=== PATIENT | female | born 1950 | race Caucasian/White ===

== ENCOUNTER → 2023-07-13 14:27 | Outpatient (REF) | payer MEDICARE, OTHER, SELFPAY | LOC: HWWDC 14:27 | PROVIDERS: ATTENDING PHYSICIAN Student in an Organized Health Care Education/Training Program | DX: Z12.31 Encounter for screening mammogram for malignant neoplasm of breast (principal) | CPT/HCPCS: 77063; 77067 ==

== ENCOUNTER 2024-04-19 12:49 | Emergency (ER) | payer MEDICARE, OTHER, SELFPAY ==
[2024-04-19 12:57] VITALS: BP 131/84
--- NOTE | 2024-04-19 13:33 | ED.GENMED ---
History of Present Illness
General
Chief Complaint: Weakness
Source: patient
Time Seen by Provider: 04/19/24 13:19
History of Present Illness
History of Present Illness:
73-year-old female with past medical history of paroxysmal atrial fibrillation, hyperlipidemia, diverticulitis, GERD presenting to the emergency department for evaluation after she started with persistent diarrhea Wednesday evening that lasted through
Wednesday and stopped after she took an Imodium on Wednesday evening, since that time has been eating mainly liquid based diet, notes continued generalized weakness and feeling unwell. Patient states that she has not had any bowel movement this Wednesday
evening. Patient denies any fevers or upper respiratory-like symptoms during this time. No known sick contacts, recent travel or recent antibiotics. Patient states that she was concern for reoccurrence of diverticulitis and states that she was
told by her colorectal surgeon that if symptoms were to flare that she should come to the emergency department for further evaluation which is why she presented today. Patient notes that on Wednesday morning into Wednesday while trying to get to the
bathroom she believes she may have either syncopized or got too weak causing her to fall onto the ground. No episodes since then as well.
Past History
Past History
ED Past Medical History: Arrthythmia (Questionable 'atrial fib vs fast heart rate'), GERD, Hypercholesterolemia and Other (Ulcers, Diverticulitis, kidney stone)
ED Past Surgical History: Brain, Tonsilectomy and Urological (Lithotripsy with stent placement on right September 2021)
Social History
Tobacco: Non-smoker
Alcohol: Occasional
Drug: None
Personal:
Living: with family
Employment: Retired
Family History
Family History: Other (Noncontributory)
Review of Systems
Review of Systems
All Other Systems: ROS reviewed and negative except as documented in HPI and ROS
Phy Exam
Physical Exam
Physical Exam:
GENERAL: Alert , in no apparent distress
EYE: clear conjunctiva b/l
HEAD: NCAT
ENT: mmm.
CARDIAC: Regular rate and rhythm .
LUNGS: Clear breath sounds bilaterally, no acute respiratory distress, no wheezes/rales/rhonchi
ABDOMEN: Soft, without focal tenderness, no r/g, no cvat
NEUROLOGICAL: Alert and oriented
SKIN: Warm and dry, skin intact.
MUSCULOSKELETAL: No edema, well perfused.
PSYCH: Normal and appropriate interaction.
Scores
Heart Failure Risk
Heart Failure Risk Score: Not Applicable
Heart Score for Chest Pain Patients
STEMI patient?: Not applicable
Withdrawal Assessment of Alcohol
Withdrawal Assessment Completed?: Not applicable
Course
Orders/Labs/Results
Orders:
Orders
04/19/24 13:02
Electrocardiogram (*1) Urgent
Reason for Study: Fatigue / Weakness
EKG- Treatment ONCE
04/19/24 13:29
0.9% Sodium Chloride 1000 ml [Nss] 1,000 ml IV BOLUS
04/19/24 13:30
CT Abd/Pel (IV only)-DH only Urgent
Comment:
Reason For Exam: hx diverticulitis, diarrhea
04/19/24 13:50
COVID-19 Antigen Urgent
Source: Nasal Swab
Complete Blood Count/With Diff Urgent
Comprehensive Metabolic Panel Urgent
Lipase Urgent
Influenza A+B Rapid Molecular Urgent
TERRENCE Source: Nasal Swab
Specimen Description:
Abnormal Lab Results
04/19/24
13:50
MCHC 32.4 L g/dL
(33.0-37.0)
Absolute Monos (auto) 0.7 H 10^3/uL
(0.1-0.6)
Lymphocytes % 16.5 L %
(20.5-51.1)
04/19/24 13:50
04/19/24 13:50
Vital Signs
Initial and Last Documented VS:
Initial Vital Signs
Temp Pulse Resp BP Pulse Ox
99.9 F 78 18 131/84 98
04/19/24 12:57 04/19/24 12:57 04/19/24 12:57 04/19/24 12:57 04/19/24 12:57
Last Documented Vital Signs
Temp Pulse Resp BP Pulse Ox
99.9 F 78 18 115/62 100
04/19/24 12:57 04/19/24 12:57 04/19/24 12:57 04/19/24 17:00 04/19/24 17:00
MDM/Problems Addressed
Differential Diagnosis Includes:
Gastroenteritis, colitis, diverticulitis, electrolyte derangement, dehydration, flu
MDM/Problems Addressed:
73-year-old female presenting to the ER after having continuous diarrhea Wednesday night into Wednesday, symptoms now resolved although patient stating she still just does not feel quite right. Patient with low-grade temperature of 99.9 in triage however
other vitals are within normal limits. Patient is overall well-appearing with no focal abdominal tenderness. I am a little less suspicious for diverticulitis given lack of pain however given history will need CT scan. Will check labs to evaluate
for any possible electrolyte derangement. IV fluids ordered. Disposition pending.
*Radiology
Radiology exam reviewed: radiology read reviewed
*Pulse Oximetry
Patient hypoxic: no
*Supervisor Pigment Making Interpretation
Rate: normal
Rhythm: sinus
*Critical Care Note
Total Time (30-74mins, 75-104mins- exclusive of procedures): Not Applicable
Data Reviewed
Review of Other/Old Records Reveals: Labs and Records
Patient Management
Escalation/DeEscalation of care consider admission/obs:
Patient CT scan shows severe diverticulosis but no diverticulitis. Other findings chronic. Patient provided with printout of CT report. Advised to increase fiber and water soluble foods in diet. Encourage close outpatient follow-up. Patient
aware of return precautions to the ER but otherwise stable for discharge home.
ED Attending Note
-
Portions of this chart may have been created with voice recognition software.� Occasional wrong word or��sound alike� substitutions may have occurred due to the inherent limitations of voice recognition software.
Discharge Plan
Departure
Patient Disposition: Home (Routine Discharge)
Date of Disposition: 04/19/24
Time of Disposition: 18:30
Patient with high blood pressure during this ER visit?: No
Discharge Problem:
Diverticulosis, Diarrhea
Instructions: Diverticulosis
Prescriptions:
No Action
sodium chloride 1 DROP drops
1 drp BOTH EYES TID
guar gum 1 PKT packet
1 pkt PO DAILY
rosuvastatin 10 MG tablet
10 mg PO DAILY
cholecalciferol (vitamin D3) 1,000 UNITS tablet
1,000 units PO DAILY
acetaminophen [Tylenol Extra Strength] 500 MG tablet
1,000 mg PO DAILYPRN PRN (Reason: mild pain, back pain)
amoxicillin-pot clavulanate 1 TABLET tablet
1 tab PO Q12 Qty: 16 0RF
oxycodone 5 mg tablet
2.5 mg PO Q6H PRN (Reason: pain) Qty: 6 0RF
Referrals:
Zayra Gonzalez MD [Family Provider] -
Interventions
Interventions:
*Risk Screen - Suicide Last Done: 04/19/24 12:57
*General Assessment Last Done: 04/19/24 12:57
*Neglect/Abuse Screening Last Done: 04/19/24 12:57
*ED- Fall Risk Assessment Last Done: 04/19/24 14:03
*ED COVID-19 Vaccine History Last Done: 04/19/24 12:57
*Nursing Disposition Last Done: 04/19/24 18:42
ED- Cardiac Assessment Last Done: 04/19/24 14:05
ED- Neurological Assessment Last Done: 04/19/24 14:05
ED- Pulmonary Assessment Last Done: 04/19/24 14:05
Discharge Date and Time
Discharge Date/Time: 04/19/24 18:43
Print Language: MALAYSIAN
[2024-04-19 13:53] VITALS: BP 109/64
[2024-04-19 14:00] VITALS: BP 114/66
[2024-04-19 14:01] VITALS: BMI 24.3
[2024-04-19 14:08] LABS: % Basophils 0.7 % (0-2); % Eosinophils 1.4 % (0-6); % Immature Granulocytes 0.2 % (0-0.5); % Lymphocytes 16.5 % (20.5-51.1); % Monocytes 8.1 % (1.7-9.3); % Neutrophils 73.1 % (42.2-75.2); Absolute Basophils 0.1 10^3/uL (0-0.2); Absolute Eosinophils 0.1 10^3/uL (0-0.7); Absolute Lymphocytes 1.4 10^3/uL (1.2-3.4); Absolute Monocytes 0.7 10^3/uL (0.1-0.6); Absolute Neutrophils 6.1 10^3/uL (1.4-6.5); Hematocrit 43.8 % (37.0-47.0); Hemoglobin 14.2 g/dL (12.0-16.0); Mean Corp Hgb Conc. 32.4 g/dL (33.0-37.0); Mean Corpuscular Hgb 30.1 pg (27.0-31.0); Mean Corpuscular Volume 92.8 fL (81.0-99.0); Mean Platelet Volume 10.4 fL (7.4-10.4); Nucleated Red Blood Cells % 0 %; Platelet Count 233 10^3/uL (130-400); Red Blood Cell Count 4.72 10^6/uL (4.20-5.40); Red Cell Dist. Width 13.4 % (11.5-14.5); White Blood Cell Count 8.3 10^3/uL (4.8-10.8)
[2024-04-19] MEDS: NSS 1000 IV (14:09)
[2024-04-19 14:22] LABS: ALT (SGPT) 29 U/L (0-35); AST (SGOT) 31 U/L (14-36); Albumin 3.8 g/dl (3.5-5.0); Alkaline Phosphatase 48 U/L (38-126); Blood Urea Nitrogen 16 mg/dl (7-17); Carbon Dioxide 26 mmol/L (22-30); Chloride 107 mmol/L (98-107); Estimated Creatinine Clearance 55 ml/min; Glucose 94 mg/dl (70-99); Lipase 104 U/L (23-300); Potassium 4.3 mmol/L (3.5-5.1); Sodium 139 mmol/L (135-145); Total Bilirubin 0.5 mg/dl (0.2-1.3); Total Protein 6.4 g/dl (6.3-8.2); eGFR > 60.00
[2024-04-19 14:50] LABS: COVID-19 Antigen Negative (Negative)
[2024-04-19 15:00] VITALS: BP 126/110
[2024-04-19 16:00] VITALS: BP 111/69
[2024-04-19 17:00] VITALS: BP 115/62
== END 2024-04-19 18:43 | disposition home or self-care (01) ==
LOC: EMR 12:49
PROVIDERS: Physician Assistant Medical; EMERGENCY PHYSICIAN Emergency Medicine; FAMILY PHYSICIAN Emergency Medicine
DX: K57.30 Diverticulosis of large intestine without perforation or abscess without bleeding (principal); R19.7 Diarrhea, unspecified; I48.0 Paroxysmal atrial fibrillation; E78.00 Pure hypercholesterolemia, unspecified; K21.9 Gastro-esophageal reflux disease without esophagitis
CPT/HCPCS: 99284; 96360; 74177; 80053; 83690; 85025; 87502; 87811; 93005; Q9967

== ENCOUNTER 2024-07-05 06:06 | Inpatient (IN) | payer MEDICARE, OTHER, SELFPAY ==
[2024-06-26 11:36] LABS: Hematocrit 42.3 % (37.0-47.0); Hemoglobin 13.4 g/dL (12.0-16.0); Mean Corp Hgb Conc. 31.7 g/dL (33.0-37.0); Mean Corpuscular Hgb 29.8 pg (27.0-31.0); Mean Platelet Volume 11.3 fL (7.4-10.4); Platelet Count 259 10^3/uL (130-400); Red Cell Dist. Width 13.5 % (11.5-14.5)
[2024-06-26 11:46] LABS: APTT 29.3 Sec (23.4-35.0); INR 0.92; PT 12.7 Sec (11.4-14.6)
[2024-06-26 12:04] LABS: ALT (SGPT) 29 U/L (0-35); AST (SGOT) 28 U/L (14-36); Albumin 4.4 g/dl (3.5-5.0); Alkaline Phosphatase 42 U/L (38-126); Blood Urea Nitrogen 17 mg/dl (7-17); Calcium 9.1 mg/dl (8.4-10.2); Carbon Dioxide 28 mmol/L (22-30); Chloride 109 mmol/L (98-107); Glucose 92 mg/dl (70-99); Sodium 143 mmol/L (135-145); Total Bilirubin 0.7 mg/dl (0.2-1.3); eGFR > 60.00
[2024-06-26 13:42] VITALS: BMI 25.0
[2024-06-27 03:09] LABS: Glycohemoglobin (HgbA1c) 5.6 % (4.0-5.6)
[2024-07-05] VITALS (24 sets, daily range): BP systolic 87–132; BP diastolic 50–66; BMI 25.0
[2024-07-05] MEDS: ENTEREG 12 MG PO (06:51)
[2024-07-05] MEDS: HEPARIN 5000 UNITS SC (06:51)
[2024-07-05] MEDS: NORMOSOL-R/PLASMALYTE-A 1000 IV ×3 (06:51→23:15)
[2024-07-05] MEDS: TYLENOL 1000 MG PO (06:51)
--- NOTE | 2024-07-05 11:21 | W.IMMPOSTOP ---
Surgical Immed Post Op Note
-
Primary Surgeon: Arturo Giraldo MD
Dry Curer: GENEVA Mackey
Pre-op Diagnosis: Recurrent sigmoid diverticulitis
Post-op Diagnosis: Same
Procedure Performed: Robotic sigmoid colon resection with intracorporeal anastomosis
Anesthesia Type: GET
Specimen / Cultures: Sigmoid colon (suture is proximal)
Estimated Blood Loss: 20cc
Complications: None
Operative Findings: Chronic sigmoid diverticulitis
28mm EEA
Normal leak test
Patient's updated.
[2024-07-05] MEDS: ZOFRAN 4 MG IV (11:55)
[2024-07-05] MEDS: TYLENOL PO (12:42)
[2024-07-05] MEDS: TORADOL IV (16:11)
[2024-07-05] MEDS: TYLENOL 650 MG PO ×3 (16:15→23:16)
[2024-07-05] MEDS: TORADOL 15 MG IV ×2 (17:26→23:16)
--- NOTE | 2024-07-05 17:45 | DOWNTIME ---
There was a [employer] Client Staff Radiation Therapist Downtime on 07/05/2024 from 1230 to 07/05/2024 at 1550. Downtime documentation of patient's care, including medication administrations, has been reconciled in the electronic record per guidelines. Refer to the
patient's paper chart under the miscellaneous tab to see printed paper medication records and downtime forms.
[2024-07-05] MEDS: LEXAPRO 5 MG PO (22:33)
[2024-07-06 03:04] VITALS: BP 107/49
[2024-07-06] MEDS: TYLENOL 650 MG PO ×5 (04:05→23:27)
[2024-07-06] MEDS: TORADOL 15 MG IV ×4 (05:56→23:28)
[2024-07-06 06:00] VITALS: BMI 25.1
[2024-07-06 07:30] LABS: % Basophils 0.1 % (0-2); % Immature Granulocytes 0.4 % (0-0.5); % Lymphocytes 6.6 % (20.5-51.1); % Monocytes 6.9 % (1.7-9.3); Absolute Immature Granulocytes 0.1 10^3/uL (0-0.05); Absolute Monocytes 1.1 10^3/uL (0.1-0.6); Absolute Neutrophils 13.2 10^3/uL (1.4-6.5); Hematocrit 36.9 % (37.0-47.0); Mean Corp Hgb Conc. 32.5 g/dL (33.0-37.0); Mean Corpuscular Hgb 30.5 pg (27.0-31.0); Mean Corpuscular Volume 93.7 fL (81.0-99.0); Mean Platelet Volume 11.2 fL (7.4-10.4); Nucleated Red Blood Cells % 0 %; Platelet Count 224 10^3/uL (130-400); Red Blood Cell Count 3.94 10^6/uL (4.20-5.40); Red Cell Dist. Width 13.8 % (11.5-14.5); White Blood Cell Count 15.4 10^3/uL (4.8-10.8)
[2024-07-06 07:58] VITALS: BP 92/47
[2024-07-06 08:06] LABS: Blood Urea Nitrogen 9 mg/dl (7-17); Calcium 7.3 mg/dl (8.4-10.2); Carbon Dioxide 23 mmol/L (22-30); Chloride 114 mmol/L (98-107); Estimated Creatinine Clearance 62 ml/min; Glucose 117 mg/dl (70-99); Potassium 4.9 mmol/L (3.5-5.1); Sodium 139 mmol/L (135-145); eGFR > 60.00
[2024-07-06] MEDS: CRESTOR 10 MG PO (08:13)
[2024-07-06] MEDS: ENTEREG 12 MG PO ×2 (08:13→19:48)
--- NOTE | 2024-07-06 09:55 | W.PN.CRS1 ---
Today's Communication / Plan
-
dc reynoso
advance diet
lovenox
Assessment/Plan
-
POD#1 Robotic sigmoid colon resection with intracorporeal anastomosis
WBC 15.4, Hgb 12.0
Vitals normal
-Out of bed as tolerated
-Okay to shower
-OR pathology pending
-Advance diet to fulls this afternoon
-D/C IVFs when tolerating po
-Pain control: tylenol/toradol standing, Dilaudid PRN
-D/C reynoso
-Add lovenox for dvt prophylaxis, TEDS/SCDS in place
Subjective Data
Procedure
07/05/2024- Robotic sigmoid colon resection with intracorporeal anastomosis
Subjective Data
Date of Service: July 06, 2024
Patient states she is feeling well. She denies nausea or vomiting. She has not any bowel movements or flatus yet. Her pain is controlled.
Objective Data
-
Vital Signs
Temp Pulse Resp BP Pulse Ox
98.6 F 64 16 92/47 97
07/06/24 07:58 07/06/24 07:58 07/06/24 07:58 07/06/24 07:58 07/06/24 07:58
Intake & Output
07/05/24 07/06/24 07/07/24
06:59 06:59 06:59
Intake Total 1460 / 1460
Output Total 1700 / 1700
Balance -240 / -240
Intake:
Oral fluids 500 / 500
IV fluids (Total) 960 / 960
Output:
Urine, Reynoso 1700 / 1700
Lab Results
07/06/24 07:05
07/06/24 07:05
Physical Exam
-
General: No Acute Distress and AOx3
Abdomen: Soft, Non Distended and Non Tender
Skin: Warm and Dry
Incision: Clear, Dry, Intact
[2024-07-06 10:51] VITALS: BP 114/60; PULSE 71
--- NOTE | 2024-07-06 12:16 | CM ---
Initial assessment completed with patient who lives with her in a 2 story town-home plus basement, B/B on main floor, 2 steps to enter. 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 Support system is , friends,
neighbors and 2 sons who live in [facility]. Does have a HC-POA. No service. PCP is Dr. Zayra Gonzalez and Pharmacy is [facility] [place]. Discharge POC: Home with no needs.
[2024-07-06] MEDS: NORMOSOL-R/PLASMALYTE-A IV (12:27)
[2024-07-06 12:33] VITALS: BP 111/57
[2024-07-06 15:05] VITALS: BP 125/65
[2024-07-06] MEDS: LOVENOX 40 MG SC (18:21)
[2024-07-06] MEDS: TYLENOL PO (19:48)
[2024-07-06] MEDS: LEXAPRO 5 MG PO (22:07)
[2024-07-06 23:00] VITALS: BP 129/62
[2024-07-07] MEDS: ROXICODONE 5 MG PO (00:43)
[2024-07-07] MEDS: TYLENOL PO (05:02)
[2024-07-07 06:00] VITALS: BMI 25.8
[2024-07-07] MEDS: TORADOL 15 MG IV ×2 (06:00→13:07)
[2024-07-07 07:18] VITALS: BP 115/68
[2024-07-07] MEDS: TYLENOL 650 MG PO ×2 (07:53→13:06)
[2024-07-07] MEDS: ENTEREG 12 MG PO (07:53)
[2024-07-07] MEDS: CRESTOR 10 MG PO (07:53)
[2024-07-07 08:06] LABS: % Basophils 0.4 % (0-2); % Eosinophils 0.9 % (0-6); % Immature Granulocytes 0.3 % (0-0.5); % Lymphocytes 21.2 % (20.5-51.1); % Monocytes 7.1 % (1.7-9.3); % Neutrophils 70.1 % (42.2-75.2); Absolute Basophils 0.1 10^3/uL (0-0.2); Absolute Eosinophils 0.1 10^3/uL (0-0.7); Absolute Lymphocytes 2.4 10^3/uL (1.2-3.4); Absolute Monocytes 0.8 10^3/uL (0.1-0.6); Hematocrit 35.4 % (37.0-47.0); Hemoglobin 11.7 g/dL (12.0-16.0); Mean Corp Hgb Conc. 33.1 g/dL (33.0-37.0); Mean Corpuscular Hgb 30.7 pg (27.0-31.0); Mean Corpuscular Volume 92.9 fL (81.0-99.0); Nucleated Red Blood Cells % 0 %; Platelet Count 222 10^3/uL (130-400); Red Blood Cell Count 3.81 10^6/uL (4.20-5.40); Red Cell Dist. Width 14.1 % (11.5-14.5); White Blood Cell Count 11.5 10^3/uL (4.8-10.8)
--- NOTE | 2024-07-07 08:32 | W.PN.CRS1 ---
Today's Communication / Plan
-
low residue
possible d/c later today
Assessment/Plan
-
POD#2 Robotic sigmoid colon resection with intracorporeal anastomosis
WBC 11.5 (15.4), Hgb 11.7 (12.0)
Vitals normal
-Out of bed as tolerated
-Okay to shower
-OR pathology pending
-Advance diet to low residue
-Pain control: tylenol/toradol standing, Dilaudid PRN
-Lovenox for dvt prophylaxis, TEDS/SCDS in place
-Possible discharge later today if tolerates low residue.
Subjective Data
Procedure
07/05/2024- Robotic sigmoid colon resection with intracorporeal anastomosis
Subjective Data
Date of Service: July 07, 2024
Patient states she had some cramping last night. She denies nausea or vomiting. She tolerating fulls well. She is not quite sure about going home today.
Objective Data
-
Vital Signs
Temp Pulse Resp BP Pulse Ox
98.5 F 60 16 115/68 96
07/07/24 07:18 07/07/24 07:18 07/07/24 07:18 07/07/24 07:18 07/07/24 07:18
Intake & Output
07/06/24 07/07/24 07/08/24
06:59 06:59 06:59
Intake Total 1460 / 1460
Output Total 1700 / 1700 110 / 110 500 / 500
Balance -240 / -240 -110 / -110 -500 / -500
Intake:
Oral fluids 500 / 500
IV fluids (Total) 960 / 960
Output:
Urine, [place] 1700 / 1700
Urine, Voided 110 / 110 500 / 500
Lab Results
05/30/25 07:24
Physical Exam
-
General: No Acute Distress and AOx3
Abdomen: Soft, Non Distended and Non Tender
Skin: Warm and Dry
Incision: Clear, Dry, Intact
[2024-07-07 08:34] LABS: Blood Urea Nitrogen 10 mg/dl (7-17); Calcium 8.1 mg/dl (8.4-10.2); Carbon Dioxide 21 mmol/L (22-30); Chloride 109 mmol/L (98-107); Estimated Creatinine Clearance 62 ml/min; Glucose 88 mg/dl (70-99); Potassium 4.7 mmol/L (3.5-5.1); Sodium 135 mmol/L (135-145); eGFR > 60.00
--- NOTE | 2024-07-07 14:41 | CM ---
Patient has been medically cleared for discharge to home with no additional skilled services. Patient has arranged for transport home.
[2024-07-07 15:10] VITALS: BP 124/63
== END 2024-07-07 15:44 | disposition home or self-care (01) | DRG 331 ==
LOC: 2 SOUTH 06:06
PROVIDERS: Physician Assistant; ADMITTING PHYSICIAN Surgery; FAMILY PHYSICIAN Emergency Medicine
PROC: 0DTN0ZZ Resection of Sigmoid Colon, Open Approach (ICD-10-PCS; 2024-07-05)
PROC: 8E0W0CZ Robotic Assisted Procedure of Trunk Region, Open Approach (ICD-10-PCS; 2024-07-05)
DX: K57.32 Diverticulitis of large intestine without perforation or abscess without bleeding (principal)
CPT/HCPCS: 88307; 36415; 80048; 80053; 83036; 85025; 85027; 85610; 85730; 86850; 86900; 86901; 97161; J1335

== ENCOUNTER → 2024-08-18 08:59 | Outpatient (REF) | payer MEDICARE, OTHER, SELFPAY | LOC: HWWDC 08:59 | PROVIDERS: ATTENDING PHYSICIAN Emergency Medicine | DX: Z12.31 Encounter for screening mammogram for malignant neoplasm of breast (principal) | CPT/HCPCS: 77063; 77067 ==

== ENCOUNTER 2024-11-25 12:11 | Emergency (ER) | payer MEDICARE, OTHER, SELFPAY ==
[2024-11-25 12:24] VITALS: BP 133/66
[2024-11-25 12:40] LABS: Hematocrit 45.6 % (37.0-47.0); Hemoglobin 14.2 g/dL (12.0-16.0); Mean Corp Hgb Conc. 31.1 g/dL (33.0-37.0); Mean Corpuscular Volume 96.8 fL (81.0-99.0); Nucleated Red Blood Cells % 0 %; Platelet Count 275 10^3/uL (130-400); Red Cell Dist. Width 13.2 % (11.5-14.5)
[2024-11-25 12:55] LABS: INR 0.96; PT 13.1 Sec (11.4-14.6)
[2024-11-25 13:06] LABS: ALT (SGPT) 20 U/L (0-35); AST (SGOT) 23 U/L (14-36); Albumin 4.3 g/dl (3.5-5.0); Alkaline Phosphatase 42 U/L (38-126); Blood Urea Nitrogen 16 mg/dl (7-17); Calcium 9.5 mg/dl (8.4-10.2); Carbon Dioxide 28 mmol/L (22-30); Chloride 110 mmol/L (98-107); Glucose 81 mg/dl (70-99); Potassium 4.7 mmol/L (3.5-5.1); Sodium 142 mmol/L (135-145); Total Protein 6.9 g/dl (6.3-8.2); eGFR > 60.00
[2024-11-25 13:25] LABS: Troponin I < 0.012 ng/ml
[2024-11-25 14:36] VITALS: BP 133/78
[2024-11-25 14:43] VITALS: BMI 25.7
[2024-11-25] MEDS: NSS 1000 IV (14:48)
[2024-11-25 15:00] VITALS: BP 137/75
[2024-11-25 16:40] VITALS: BP 126/78
[2024-11-25 17:16] VITALS: BP 113/72
[2024-11-25 17:17] LABS: Troponin I < 0.012 ng/ml
[2024-11-25 17:30] VITALS: BP 111/62
--- NOTE | 2024-11-25 17:35 | ED.GENMED ---
History of Present Illness
General
Chief Complaint: Chest Pain
Source: patient and spouse
Time Seen by Provider: 11/25/24 14:27
History of Present Illness
History of Present Illness:
Note:
CHIEF COMPLAINT(S)
Mitral valve prolapse symptoms, lightheadedness, sweating, and bowel irregularities.
HISTORY OF PRESENT ILLNESS
The patient is a 74-year-old female who reports experiencing symptoms overnight, including a sensation she attributes to her mitral valve prolapse. Last night, she had 'infrequent glitches' causing painful sensations momentarily. This morning, while
at her computer, she suddenly felt hot, sweaty, weak, and dizzy. She also mentions recent changes in her bowel habits, which have not normalized since undergoing a bowel resection on July 05. The resection was done at the hospital, and her bowel
movements have not returned to her previous baseline in the four months since. While lying in the hospital, she experienced symptoms twice that she associated with her mitral valve. She notes occasional back pain, which she managed with OTC muscle
relaxants. No episodes of shortness of breath or leg swelling were reported. The patient denies having coronary artery disease but is under a cardiologists care.
PAST MEDICAL AND SURIGICAL HISTORY
The patient underwent bowel resection on July 05.
CHRONIC MEDICAL CONDITIONS SIGNIFICANTLY AFFECTING CARE
Mitral valve prolapse.
ALLERGIES
The patient reports allergies to sulfa drugs, beta blockers, and one unspecified medication.
PAST MEDICAL HISTORY
Mitral valve prolapse.
PAST SURGICAL HISTORY
Bowel resection on July 05.
MEDICATIONS
The patient uses [id number] muscle relaxants as needed.
REVIEW OF SYSTEMS
- Cardiovascular: Reports intermittent episodes of sensations attributed to mitral valve prolapse, no shortness of breath.
- Neurological: Reports feeling weak and dizzy while sitting.
- Gastroenterological: Reports unresolved changes in bowel habits since bowel resection, denies pain during deep breaths.
- Musculoskeletal: Reports occasional back pain, relieved with OTC medication.
PHYSICAL EXAM
General: Alert, no acute distress.
Skin: Warm, dry.
Head: Normocephalic, atraumatic.
Neck: Supple, trachea midline.
Eye, Ears, Nose, Mouth and Throat: Oral mucosa moist.
Cardiovascular: Normal peripheral perfusion, No edema. RRR, no murmurs
Respiratory: Respirations are non-labored. lungs clear
Gastrointestinal: Abdomen non-distended.
Back: Normal range of motion, Normal alignment.
Musculoskeletal: Normal range of motion, normal strength.
Neurological: Alert and oriented to person, place, time, and situation, No focal neurological deficit observed.
Psychiatric: Cooperative, appropriate mood & affect.
PROBLEM LIST
Acute:
- Lightheadedness and dizziness
- Sweating and weakness
Chronic:
- Mitral valve prolapse
PLAN
1. Conduct blood tests to check electrolytes, hemoglobin, and heart enzyme levels.
2. Perform a chest X-ray to check for fluid accumulation or other post-surgical complications.
3. Administer IV fluids given changes in stool and current state.
4. Monitor heart rate and oxygen levels.
5. Evaluate for atypical symptoms of potential coronary issues, especially in context of recent symptoms.
DIFFERENTIAL DIAGNOSIS
The Differential Diagnosis includes, in no particular order and is not limited to:
- Coronary artery disease
- Atypical angina
- Arrhythmia
- Electrolyte imbalance
- Gastrointestinal issues related to bowel resection
- Dehydration
- Vasovagal syncope
- Heart failure
- Pulmonary embolism
- Anemia
EKG
My independent EKG interpretation is:
- EKG time not specified.
- Rhythm: Regular sinus rhythm.
- Heart rate: 65 beats per minute.
- [place]: Normal.
- AL interval: Normal.
- QRS duration: Normal.
- QT interval: Normal.
- Abnormalities: No ischemic changes observed; no ST segment changes or T wave inversions.
Disposition:
SUMMARY OF ENCOUNTER
A 74-year-old female presented with atypical symptoms that she attributed to her mitral valve prolapse, including a 'twinge.' The patient reported no murmurs, and her EKG is normal with no acute ischemic changes. A CBC and BMP were conducted, both
returning normal results. Troponin tests conducted twice, three hours apart, were negative. COVID-19 was not checked. A chest X-ray showed no acute findings. Based on the evaluation and test results, the patient was deemed stable for outpatient
management.
PLAN
The patient is advised to follow up with a multimedia instructional designer for further evaluation of her symptoms and to use the chest pain follow-up hotline as needed.
INDEPENDENT REVIEW OF LABS AND INTERPRETATION OF TESTS
- My independent review of CBC is normal.
- My independent review of BMP is normal.
- My independent review of troponin is negative for both tests conducted three hours apart.
- My independent interpretation of the chest X-ray shows no acute findings.
MEDICATION RECONCILIATION
- No new prescriptions or medications were administered during this visit.
MEDICAL DECISION MAKING
- Number and Complexity of Problems Addressed: Chronic conditions affecting care are mitral valve prolapse. Differential diagnosis includes coronary artery disease, atypical angina, arrhythmia, electrolyte imbalance, gastrointestinal issues,
dehydration, vasovagal syncope, heart failure, pulmonary embolism, and anemia.
- Data:
Category 1
- My independent interpretation of EKG was normal.
- External record indicates previous issues with mitral valve prolapse.
- Risk:
Consideration of admission/observation was considered given the complexity and risk of the patients presenting complaint, exam findings, and her underlying comorbidities. However, ultimately, I feel the patient is safe for outpatient management with
close follow-up. Reasoning: Work-up was reassuring, does not reveal any acute life/organ-threatening processes, patients symptoms well controlled upon reevaluation, reexamination is reassuring, vitals are stable, patient agreeable with discharge,
and reliable for follow-up.
FOLLOW-UP INSTRUCTIONS
The patient should follow up with cardiology and use the chest pain follow-up hotline as necessary.
DIAGNOSIS
- Mitral valve prolapse (I34.1)
- Dizziness and giddiness (R42)
- Weakness (M62.81)
Past History
Past History
ED Past Medical History: Arrthythmia (Questionable 'atrial fib vs fast heart rate'), GERD, Hypercholesterolemia and Other (Ulcers, Diverticulitis, kidney stone)
ED Past Surgical History: Brain, Tonsilectomy and Urological (Lithotripsy with stent placement on right September 2021)
Social History
Tobacco: Non-smoker
Alcohol: Occasional
Drug: None
Personal:
Living: with family
Employment: Retired
Family History
Family History: Other (Noncontributory)
Phy Exam
Physical Exam
Physical Exam:
.
Scores
Heart Score for Chest Pain Patients
STEMI patient?: No
History: Slightly or Non-Suspicious
ECG: Normal
Age: >/= 65 years
Risk Factors: 1 or 2 Risk Factors
Troponin: </= Normal Limit
Heart Score for Chest Pain Patients: 3
Heart Score Risk: 2.5% MACE over next 6 weeks
Course
Orders/Labs/Results
Orders:
Orders
11/25/24 12:12
Electrocardiogram (*1) Urgent
Reason for Study: Chest Pain
EKG- Treatment ONCE
11/25/24 12:33
Complete Blood Count/With Diff Urgent
Comprehensive Metabolic Panel Urgent
Prothrombin Time Urgent
Troponin I Urgent
11/25/24 14:39
CR Chest - 2 Views Urgent
Comment:
Reason For Exam: cp
11/25/24 14:47
0.9% Sodium Chloride 500 ml [Nss] 1,000 ml IV BOLUS
11/25/24 16:47
Troponin I Urgent
Abnormal Lab Results
11/25/24
12:33
MCHC 31.1 L g/dL
(33.0-37.0)
Chloride 110 H mmol/L
(98-107)
11/25/24 12:33
11/25/24 12:33
Vital Signs
Initial and Last Documented VS:
Initial Vital Signs
Temp Pulse Resp BP Pulse Ox
98.2 F 75 18 133/66 98
11/25/24 12:24 11/25/24 12:24 11/25/24 12:24 11/25/24 12:24 11/25/24 12:24
Last Documented Vital Signs
Temp Pulse Resp BP Pulse Ox
98.2 F 56 12 126/78 98
11/25/24 12:24 11/25/24 16:45 11/25/24 16:45 11/25/24 16:40 11/25/24 17:37
*Pulse Oximetry
SaO2: 98
Oxygen Mode of Delivery: Room air
Patient hypoxic: no
*Critical Care Note
Total Time (30-74mins, 75-104mins- exclusive of procedures): Not Applicable
ED Attending Note
-
Portions of this chart may have been created with voice recognition software.� Occasional wrong word or��sound alike� substitutions may have occurred due to the inherent limitations of voice recognition software.
Discharge Plan
Departure
Patient Disposition: Home (Routine Discharge)
Date of Disposition: 11/25/24
Time of Disposition: 17:41
Patient with high blood pressure during this ER visit?: No
Discharge Problem:
Atypical chest pain
Instructions: Chest Pain DCA Follow Up
Prescriptions:
No Action
sodium chloride 1 DROP drops
1 drp BOTH EYES TID
guar gum 1 PKT packet
1 pkt PO 1800
rosuvastatin 10 MG tablet
10 mg PO DAILY
calcium carbonate-vitamin D3 [Calcium 600 + D(3)] 600 mg-5 mcg (200 unit) Tablet
1 tab PO DAILY
escitalopram oxalate 5 mg tablet
5 mg PO DAILY
Prolia 60 mg/mL Syringe
60 mg SC [id number]
Patient Comments:
last received March
melatonin 5 mg Tablet
5 mg PO HS PRN (Reason: insomnia)
naproxen sodium [Aleve] 220 mg Tablet
220 mg PO BID PRN (Reason: pain)
ibuprofen [Advil] 200 mg Tablet
200 mg PO Q6H PRN (Reason: pain)
Referrals:
Zayra Gonzalez MD [Family Provider, Internal Medicine]
Activity Restrictions/Additional Instructions:
Please avoid strenuous or exertional activity until cleared by cardiology. Please see cardiology in the next 48 hours for reevaluation. Return immediately for worsening pain, shortness breath, palpitations, sweating, nausea, weakness of any kind,
numbness, tingling or any other concerns.
Cardiology has been notified and a follow up appointment has been requested. Someone will call you on the next business day to schedule a follow up appointment.
Interventions
Interventions:
*Risk Screen - Suicide Last Done: 11/25/24 12:24
*General Assessment Last Done: 11/25/24 12:24
*Neglect/Abuse Screening Last Done: 11/25/24 12:24
*ED COVID-19 Vaccine History Last Done: 11/25/24 12:24
*ED Influenza Vaccine History Last Done: 11/25/24 12:24
ED- Cardiac Assessment Last Done: 11/25/24 16:51
Discharge Date and Time
Print Language: CYMRO
== END 2024-11-25 18:00 | disposition home or self-care (01) ==
LOC: EMR 12:11
PROVIDERS: Emergency Medicine; EMERGENCY PHYSICIAN Emergency Medicine; FAMILY PHYSICIAN Emergency Medicine
DX: R07.89 Other chest pain (principal); I34.1 Nonrheumatic mitral (valve) prolapse; E78.00 Pure hypercholesterolemia, unspecified; K21.9 Gastro-esophageal reflux disease without esophagitis; Z90.49 Acquired absence of other specified parts of digestive tract; Z88.2 Allergy status to sulfonamides
CPT/HCPCS: 99284; 96360; 71046; 80053; 84484; 85025; 85610; 93005